=== PATIENT | female | born 1970 | race Caucasian/White ===

== ENCOUNTER 2020-04-05 13:08 | Outpatient (CLI) | payer BC, SELFPAY ==
--- NOTE | 2020-04-05 13:24 | XR_ITS ---
WS: [id number] Right foot, 3 views, 04/05/2020 Clinical Data: pain Comparison: None. Findings: No fractures or dislocations are seen. No bone destruction or erosion is noted. The joint spaces and soft tissues are normal. There is bony irregularity of the lateral aspect of the distal portion of the calcaneus. This may be secondary to an old injury or chronic injury. There are orthopedic screws in the medial malleolus rep airing an old medial malleolar fracture. There is a plantar spur. XR/XR foot RT min 3V* [id number] Impression: Bony irregularity of the lateral aspect of the distal portion of the right calc aneus.
== END 2020-04-05 13:09 | disposition home or self-care (01) ==
LOC: RADWPI 13:16
PROVIDERS: Visit Provider Podiatrist Foot & Ankle Surgery
DX: M79.671 Pain in right foot (principal)
CPT/HCPCS: 73630

== ENCOUNTER → 2020-08-13 09:20 | Outpatient (BNVA) | payer BC, SELFPAY | PROVIDERS: PCP Nurse Practitioner Family; Visit Provider Nurse Practitioner Women's Health | DX: N93.9 Abnormal uterine and vaginal bleeding, unspecified (principal); Z12.4 Encounter for screening for malignant neoplasm of cervix | CPT/HCPCS: 84443; 84702; 88175 ==

== ENCOUNTER → 2020-08-16 13:40 | Outpatient (BNVA) | payer BC, SELFPAY | PROVIDERS: PCP Nurse Practitioner Family; Visit Provider Nurse Practitioner Women's Health | DX: N93.9 Abnormal uterine and vaginal bleeding, unspecified (principal) | CPT/HCPCS: 76830 ==

== ENCOUNTER → 2020-08-27 11:49 | Outpatient (BNVA) | payer BC, SELFPAY | PROVIDERS: PCP Nurse Practitioner Family; Visit Provider Nurse Practitioner Women's Health | DX: N93.9 Abnormal uterine and vaginal bleeding, unspecified (principal) | CPT/HCPCS: 81025; 88305 ==

== ENCOUNTER → 2020-10-03 10:51 | Outpatient (BNVA) | payer BC, SELFPAY | PROVIDERS: PCP Nurse Practitioner Family; Visit Provider Obstetrics & Gynecology | DX: Z20.822 Contact with and (suspected) exposure to COVID-19 (principal); N93.9 Abnormal uterine and vaginal bleeding, unspecified | CPT/HCPCS: 87635 ==

== ENCOUNTER 2020-10-09 07:13 | Day surgery (SDC) | payer BC, SELFPAY ==
[2020-10-07 12:54] VITALS: BMI 38.0
--- NOTE | 2020-10-07 13:20 | P.ANESASSM_ITS ---
Pre-Anesthetic Assessment Pre-Anesthetic Assessment: Height/Weight: Height 1.7 m Weight 110.223 kg Preop Diagnosis: Abnormal uterine bleeding: menorrhagia Proposed Procedure: Operation Date: 10/09/20 13:20 Proposed Procedures p Hysteroscopy w/ Myosure/Endometrial ablation with novasure 11283 N93.9(Not Applicable) - Luis Maxwell MD Familial anesthetic complications: None Social: Social History: No alcohol and No tobacco Exam: Pre-Anes Outpt Exam: alert, oriented x 3, clear to auscultation bilaterally and regular rate & rhythm Airway: Cervical ROM: WNL MP: 3 Dentition: Full Pulmonary: Pulmonary: Asthma CV/HEM: CV/HEM: HTN Metabolic: Metabolic: DM, Hyperlipidemia and Morbid obesity Neuropsych: Comments: hx skull fracture w/ associated stroke - 1987, no residual deficits Splenectomy d/t fall Anesthetic Plan: ASA status: 2 Anesthesia: General and MAC Risk of > 500 ml blood loss (7ml/kg in children): No PFSH Anesthesia PFSH: Medical History Asthma History of [place] spotted fever Hypertension No pertinent past medical history neghx: thyroid,dvt/pe PCP: Fritz Boland Type 2 diabetes mellitus Surgical History History of ankle surgery 1987- R ankle, surgery to repair 2002- L ankle, surgery to repair, redone in 2014 History of conization of cervix (~2009) History of splenectomy (~1996) Hx of breast biopsy (~2009) Hx of fracture of skull (~1987) surgery Family History Father Diabetes Hypercholesteremia Hypertension Thyroid disease Mother Hypercholesteremia Denies family history of Colon cancer Ovarian cancer Heart disease Breast cancer Uterine cancer Stroke Social History (Updated 10/07/20 @ 10:04 by Honey Odell RN) Smoking and tobacco status: never smoked Alcohol intake: never Substance/Drug Use: never Female Reproductive History: Date of last menstrual period: 09/21/20 Data Anesthesia Cardiac Studies: No Data to Display
[2020-10-07 13:25] LABS: Basophils # 0.2 10^3/uL (0.0-0.1); Basophils % 1.6 %; Eosinophils # 0.4 10^3/uL (0.0-0.8); Eosinophils % 4.4 %; Hematocrit 41.5 % (37.0-47.0); Hemoglobin 13.4 g/dL (11.5-15.3); Lymphocytes # 1.5 10^3/uL (0.8-4.8); Lymphocytes % 15.6 %; Mean Corpuscular HGB Conc 32.3 g/dL (30.0-36.0); Mean Corpuscular Hemoglobin 31.8 pg (28.0-34.0); Mean Corpuscular Volume 98.3 fL (81-99); Mean Platelet Volume 10.8 fL (7.4-10.4); Monocytes # 1.1 10^3/uL (0.2-0.9); Monocytes % 11.2 %; Neutrophils # 6.29 10^3/uL (1.8-7.7); Neutrophils % 66.8 %; Nucleated Red Blood Cells % 0 %; Platelet Count 434 10^3/cmm (130-400); Red Blood Count 4.22 10^6/uL (4.1-5.3); Red Cell Distribution Width 14.6 % (12.1-15.1); White Blood Count 9.4 10^3/uL (4.0-10.0)
[2020-10-07 13:31] LABS: Add Urine Microscopic? NO; Charge for UA Resulting for Rev
[2020-10-07 13:34] LABS: Bilirubin Urine Neg (Negative); Blood Urine Neg (Negative); Glucose Urine UA Norm (Normal); Ketones Urine Negative (Negative); Leukocyte Esterase Urine Negative (Negative); Nitrate Urine Negative (Negative); OR HCG Qualitative Urine Negative (Negative); Protein Urine Neg (Negative); Urine Appearance Clear (CLEAR); Urine Color Yellow (Yellow); Urobilinogen Urine Norm (Negative); pH Urine 5 (5-7)
[2020-10-07 13:43] LABS: Alanine Aminotransferase 17 U/L (0-33); Albumin Level 4.2 g/dL (3.5-5.2); Alkaline Phosphatase 83 IU/L (35-105); Aspartate Amino Transferase 15 U/L (0-32); Blood Urea Nitrogen 13 mg/dL (6-20); Calcium 8.9 mg/dL (8.5-10.5); Carbon Dioxide 25 mmol/L (22-29); Chloride 103 mmol/L (98-107); Globulin 3.2 g/dL (1.3-4.6); Glomerular Filtration Rate 88.2 mL/min (90-130); Glucose 173 mg/dL (65-115); Osmolality Calculated 294 mOsm/kg (285-295); Sodium 140 mmol/L (136-145); Total Bilirubin 0.3 mg/dL (0.15-1.2); Total Protein 7.4 g/dL (6.6-8.7)
[2020-10-09] VITALS (7 sets, daily range): BP systolic 120–135; BP diastolic 81–99; PULSE 66–90; RESP 12–18; TEMP 36.3–37.1; O2SAT 96–100
[2020-10-09 07:38] LABS: OR HCG Qualitative Urine Negative (Negative)
[2020-10-09] MEDS: sodium chloride 0.9% 500 ML IV (07:40)
[2020-10-09] MEDS: scopolamine 1.5 Patch 1 PATCH TRANSDERMA (07:48)
--- NOTE | 2020-10-09 08:04 | P.ANESUD_ITS ---
Pre-Anesthetic Update Pre-Anesthetic Assessment: Date of Surgery/Procedure: 10/09/20 Preop Jennifer gnosis: Abnormal uterine bleeding: menorrhagia Proposed Procedure: Operation Date: 10/09/20 08:50 Proposed Procedures p Hysteroscopy w/ Myosure/Endometrial ablation with novasure 55735 N93.9(Not Applicable) - Luis Maxwell MD Any changes to Pre-Anesthetic Assessment?: No Last Intake: Intake Last Liquid Date 10/08/20 Last Liquid Time 19:30 Last Solid Date 10/08/20 Last Solid Time 19:30 Labs Last 48hrs: Laboratory Results - last 48 hr 10/07/20 10/07/20 10/07/20 13:15 13:15 13:15 WBC 9.4 RBC 4.22 Hgb 13.4 Hct 41.5 MCV 98.3 MCH 31.8 MCHC 32.3 RDW 14.6 Plt Count 434 H MPV 10.8 H Neut % (Auto) 66.8 Lymph % (Auto) 15.6 [place] % (Auto) 11.2 Eos % (Auto) 4.4 Baso % (Auto) 1.6 Neut # (Auto) 6.29 Lymph # (Auto) 1.5 [place] # (Auto) 1.1 H Eos # (Auto) 0.4 Baso # (Auto) 0.2 H Nucleated RBC % (a uto) 0 Nucleated RBCs # 0.0 Sodium Potassium Chloride Carbon Dioxide Anion Gap BUN Creatinine GFR Calculation Glucose Calculated Osmolal ity Calcium Total Bilirubin AST ALT Alkaline Phosphata se Total Protein Albumin Globulin Urine Color Yellow Urine Appearance Clear Urine pH 5 Ur Specific Gravit y 1.020 Urine Protein Neg Urine Glucose (UA) Norm Urine Ketones Negative Urine Blood Neg Urine Nitrate Negative Urine Bilirubin Neg Urine Urobilinogen Norm Ur Leukocyte Valerie ase Negative Urine HCG, Qual Negative Blood Type Rho(D) Type Antibody Screen 10/07/20 10/07/20 10/09/20 13:15 13:15 07:35 WBC RBC Hgb Hct MCV MCH MCHC RDW Plt Count MPV Neut % (Auto) Lymph % (Auto) [place] % (Auto) Eos % (Auto) Baso % (Auto) Neut # (Auto) Lymph # (Auto) [place] # (Auto) Eos # (Auto) Baso # (Auto) Nucleated RBC % (a uto) Nucleated RBCs # Sodium 140 Potassium 4.0 Chloride 103 Carbon Dioxide 25 Anion Gap 16.0 BUN 13 Creatinine 0.7 GFR Calculation 88.2 L Glucose 173 H Calculated Osmolal ity 294 Calcium 8.9 Total Bilirubin 0.3 AST 15 ALT 17 Alkaline Phosphata se 83 Total Protein 7.4 Albumin 4.2 Globulin 3.2 Urine Color Urine Appearance Urine pH Ur Specific Gravit y Urine Protein Urine Glucose (UA) Urine Ketones Urine Blood Urine Nitrate Urine Bilirubin Urine Urobilinogen Ur Leukocyte Valerie ase Urine HCG, Qual Negative Blood Type O Positive Rho(D) Type Positive / 4+ Antibody Screen Negative Vitals: Temperature 97.3 F L 10/09/20 07:28 Temperature Source Temporal Artery S can 10/09/20 07:28 Pulse Rate 89 10/09/20 07:28 Respiratory Rate 18 10/09/20 07:28 Blood Pressure 127/91 10/09/20 07:28 Blood Pressure Claritza n 103 10/09/20 07:28 Pulse Oximetry 97 10/09/20 07:28 Oxygen Delivery Me thod 10/09/20 07:34 Exam: Pre-Anes Outpt Exam: alert, oriented x 3, clear to auscultation bilaterally and regular rate & rhythm Cardiac Studies: No Data to Display
--- NOTE | 2020-10-09 08:17 | W.PM.OPSUD ---
Surgery/Procedure H&P Update DATE OF PROCEDURE: October 09, 2020 DATE H&P PERFORMED: 10/07/20 H&P UPDATE INFORMATION: I have reviewed H&P completed within last 30 days, I have examined patient prior to procedure and No changes to prior documentation PREOP DIAGNOSIS: Abnormal uterine bleeding: menorrhagia PLANNED PROCEDURE: Operation Date: 10/09/20 08:50 Proposed Procedures p Hysteroscopy w/ Myosure/Endometrial ablation with novasure 70118 N93.9(Not Applicable) - Luis Maxwell MD
[2020-10-09] MEDS: sodium chloride 0.9% 1,000 ML 30 ML IV (08:30)
--- NOTE | 2020-10-09 09:04 | PM.OP ---
Operative Report Date of procedure: October 09, 2020 Pre-op Diagnosis: Abnormal uterine bleeding: menorrhagia Post-op diagnosis: same Procedure Done: Hysteroscopy with D&C via MyoSure. Endometrial ablation via NovaSure Specimens removed/disposition: Endometrial curettings Pathology: Endometrial curettings Surgeon: Luis Maxwell MD Anesthesia: General Estimated blood loss (mL): 25 IV fluids (mL): 300 Urine output (mL): 50 Complications: None Condition: stable Disposition: PACU Brief History: Mrs. Blackman 50-year-old female with abnormal uterine bleeding previously treated with hysteroscopic polypectomy. Started again with abnormal bleeding. Procedure: After informed consent, the risks included but were not limited to bleeding, infection, injury to internal organs. The patient was counseled on a possible laparotomy and on the potential need for hysterectomy. The patient expressed understanding of the risks involved, all questions were answered, and the patient consented to the procedure. The patient was taken to the operating room where general anesthesia was administered. She was placed in the dorsal lithotomy position and prepped and draped in sterile fashion. A time out procedure was performed. The patient was examined under anesthesia and found to have a normal uterus with normal adnexa. A sterile weight speculum was placed in the vagina. The uterus was then gently sounded to 6.5 cm, and the cervix was dilated. The uterus was previously sounded to 6.5 cm. The length of the cervical canal was normal The 0 degrees MyoSure hysteroscope was advanced gently to the uterine fundus while visualizing the monitor. Survey of the uterine cavity showed: Irregular endometrium on anterior wall, the fundus shows atrophic endometrium; left ostium was visualized, and lateral wall with atrophic in the middle; right ostium visualized, and lateral wall with atrophic endometrium; anterior and posterior slaughter are with atrophic endometrium; endocervical canal is normal. The MyoSure device was advanced and the direct visualization the endometrium was morcellated without complication. At the end of morcellation the fluid deficit was 700 mL and was estimated at approximately 500 mL were on the floor. There was minimal bleeding noted and the tenaculum removed with goad hemostasis noted. Then proceeded with the endometrial ablation via NovaSure. The sterile NovaSure? Disposable Device package was opened, connected and tested per instructions. It was found to be working properly. The device?s array is completely enclosed by the external sheath and the WIDTH dial reads approximately 3.5 cm. The appropriate cavity length settings was set 4.5 cm. Adjust and lock the cavity length setting feature on the Disposable Device to the value obtained. The Cervical Collar was fully retracted to its proximal position. Confirmed that the cervix was dilated to 8 mm. While maintaining a slight traction on the tenaculum to minimize the angle of the uterus. In-line with the axis of the uterus the Disposable Device was inserted transcervically into the uterine cavity and advance the device until the distal end of the sheath touched the fundus. The handles were slowly squeezed up to the point of increased resistance without locking it. The WIDTH dial read 3.5 cm. The Disposable Device handles were slowly squeezed together while gently moving the Disposable Device -0.5 cm to and from the fundus and rotating the handle of the Disposable Device 45? counterclockwise from the vertical plane and 45? clockwise from the vertical plane until the handles locked and confirmed the with dial read greater than 2.5 cm. The Disposable Device was gently moved using anterior, posterior and lateral movements. The Disposable Device was slightly pulled back until the WIDTH dial reading reduced by approximately 0.2-0.5 cm. While holding the tenaculum, the Disposable Device was advance to the fundus, maintaining slight forward pressure. The WIDTH dial read to the previous measurement. The Cervical Collar was slide forward until it forms a seal against the external cervical os. The value indicated on the width dial into the NovaSure? RF Controller. In Automatic Mode the Cavity Integrity Assessment (SAMEER) procedure by stepping on the foot switch once was began. The cavity integrity assessment LED signaled the test has passed. The ablation cycle started was after the successful completion of the Cavity Integrity Assessment test. Termination of the ablation was automatic at 1 min and 37 seconds. The Cervical Collar was slide it to its proximal position. The Disposable Device was unlock, holding the front historic clothing and costume maker stationary and pulling the rear handles backwards until the Closed Array indicator reads closed the Disposable Device was withdrawn from the uterine cavity. A hysteroscopy was performed post ablation to confirm therapy it was noted that endometrial cavity had been thoroughly ablated. Prior to this, a Myosure curreting was performed, and endometrial curettings send to pathology. The patient tolerated the procedure well. The patient was taken to the recovery area in stable condition.
--- NOTE | 2020-10-09 09:17 | P.PCN_ITS ---
PACU note PACU note: VSS, Good respiratory effort, report to COMMERCIAL ACCOUNT EXECUTIVE Post-Anesthesia Exam: awake
--- NOTE | 2020-10-09 09:17 | PM.PACU ---
PACU note PACU note: VSS, Good respiratory effort, report to TAKE OFF MAN Post-Anesthesia Exam: awake
--- NOTE | 2020-10-09 15:35 | ANE.PACU2 ---
Inpatient post-anesthesia follow up: Airway intact: Yes Vital signs: Temperature 98.4 F Pulse Rate 75 Respiratory Rate 18 Blood Pressure 127/81 Pulse Oximetry 96 Oxygen Delivery Me thod Room Air Oxygen Flow Rate 8 Fraction of Inspir ed Oxygen Hydration adequate: Yes Nausea and vomiting: No Pain level: 2 Mental status: Baseline
[2020-10-09 23:11] LABS: Glucose Point of Care 141 mg/dL (70-110)
== END 2020-10-09 09:58 | disposition home or self-care (01) ==
PROVIDERS: PCP Nurse Practitioner Family; Visit Provider Obstetrics & Gynecology
PROC: 0UDB8ZZ Extraction of Endometrium, Via Natural or Artificial Opening Endoscopic (ICD-10-PCS; CPT 58558; principal; 2020-10-09 08:40)
PROC: 0U598ZZ Destruction of Uterus, Via Natural or Artificial Opening Endoscopic (ICD-10-PCS; CPT 58563; 2020-10-09 08:40)
DX: N39.3 Stress incontinence (female) (male) (principal); N92.0 Excessive and frequent menstruation with regular cycle; J45.909 Unspecified asthma, uncomplicated; I10 Essential (primary) hypertension; E11.9 Type 2 diabetes mellitus without complications; E78.5 Hyperlipidemia, unspecified; E66.01 Morbid (severe) obesity due to excess calories; Z68.38 Body mass index [BMI] 38.0-38.9, adult
CPT/HCPCS: 58558; 36415; 36416; 80053; 81003; 81025; 82962; 84703; 85025; 86850; 86900; 88305; J0690; J2405; J2704; J3010; J7030; J7040

== ENCOUNTER 2021-01-28 17:35 | Emergency (ER) | payer BC, SELFPAY ==
[2021-01-28 17:53] VITALS: BP 138/85; PULSE 75; RESP 20; TEMP 36.7; O2SAT 98
--- NOTE | 2021-01-28 21:18 | W.ED.ANIMALB ---
HPI - Animal Bite General: Chief Complaint: Animal Bite Stated Complaint: Dog Bite Spurting Blood Time Seen by Provider: 01/28/21 21:14 History of Present Illness: HPI narrative: 50-year-old female comes in today with injury to the left lower leg. Patient was trying to break up 2 dogs fighting and was accidentally bit on the calf of the left lower leg. Patient reports that her tetanus is up-to-date. Patient does have a history of diabetes. Patient appears well. Patient appears no acute distress. Review of Systems General: Reports: 10 or more systems reviewed and unremarkable except in HPI and below Skin/Breast: Reports: other (Injury left lower leg.) [facility] ED PFSH: Medical History Abnormal uterine bleeding due to endometrial polyp Aftercare following surgery of the genitourinary system Asthma History of hysteroscopy 10/09/2020- hysteroscopy with D&C via myosure, endometrial ablation via Novasure, performed by Dr. Maxwell at [facility] History of [place] spotted fever Hypertension No pertinent past medical history neghx: thyroid,dvt/pe PCP: Fritz Boland Type 2 diabetes mellitus Surgical History History of ankle surgery 1987- R ankle, surgery to repair 2002- L ankle, surgery to repair, redone in 2014 History of conization of cervix (~2009) History of splenectomy (~1996) Hx of breast biopsy (~2009) Hx of fracture of skull (~1987) surgery Family History Father Diabetes Hypercholesteremia Hypertension Thyroid disease Mother Hypercholesteremia Denies family history of Colon cancer Ovarian cancer Heart disease Breast cancer Uterine cancer Stroke Female Reproductive History: Date of last menstrual period: 09/21/20 Physical Exam Const: COMMON NORMALS: no acute distress and patient oriented x3 GENERAL APPEARANCE: cooperative HENMT: COMMON NORMALS: normocephalic and Normal external nose present HEAD & SCALP: normal to inspection and normocephalic NOSE: Normal external nose present Eye: GENERAL EYE: appearance normal, both eyes and all related structures Neck/C-Spine: COMMON NORMALS: full ROM Lymph: LYMPHATIC: no lymphadenopathy noted Chest: COMMONS NORMALS: normal inspection of the chest Resp: COMMON NORMALS: normal respiratory effort EFFORT & INSPECTION: Yes able to speak in complete sentences Cardio: COMMON NORMALS: regular rate and regular rhythm RATE: regular rate RHYTHM: regular rhythm GI: COMMON NORMALS: non-tender Extremity: COMMON NORMALS: normal to inspection Neuro: COMMON NORMALS: patient oriented x3 and moves all extremities Psych: COMMON NORMALS: mental status grossly normal and cooperative Skin: NARRATIVE SKIN EXAM: Two 1 cm lacerations to the left lower leg at the calf. Course Vital Signs: Vital signs: Vital Signs Temperature 98.1 F 01/28/21 17:53 Pulse Rate 75 01/28/21 17:53 Respiratory Rate 20 H 01/28/21 17:53 Blood Pressure 138/85 01/28/21 17:53 Pulse Oximetry 98 01/28/21 17:53 MDM - Animal Bite MDM Narrative: Medical decision making narrative: 50-year-old female comes in for injury to the left lower leg. On exam we note two 1 cm lacerations to the calf of the left lower leg. No foreign body is noted in wound. Patient moves extremities well. Differential diagnosis includes but not limited to laceration, need for prophylaxis tetanus, need for prophylaxis antibiotic. Due to the superficial nature of both wounds they were allowed to be left open. Patient was started on Augmentin for prophylaxis antibiotic. Animal's immunizations were up-to-date. Patient's tetanus shot was up-to-date. Encourage plenty of fluids and follow-up with primary care for further instruction. Return to the ER for worsening symptoms or new concerns. Differential Diagnosis: Differential diagnosis animal bite: Likely dog bite and rabies contact Discharge Plan Discharge Patient Disposition: Home Clinical Impression: Bite by animal Condition: Stable Prescriptions: New Augmentin 875-125 mg tablet 1 tab PO BID Qty: 14 RF: 0 No Action glipizide 5 mg tablet 5 mg PO BID RF: 0 lisinopril 5 mg tablet 5 mg PO DAILY RF: 0 metformin 500 mg tablet 500 mg PO BID RF: 0 amlodipine 10 mg tablet 10 mg PO DAILY RF: 0 atorvastatin 20 mg tablet 20 mg PO DAILY RF: 0 Zyrtec 10 mg capsule 10 mg PO DAILY RF: 0 ibuprofen 800 mg tablet 800 mg PO TID PRN (Reason: pain) Qty: 60 RF: 0 acetaminophen 325 mg capsule 325 mg PO Q4H PRN (Reason: fever or pain) Qty: 60 RF: 0 Discharge Orders: Discharge ED (Routine); Ordered 01/28/21 Ordered By: Buck Brannon Discharge Diet: Usual diet Discharge Activity: Increase activity as tolerated Patient Instructions: Opioid Safety, Wound Care (General) Activity Restrictions/Additional Instructions: Keep wound clean and dry. Activity as tolerated. Try to elevate leg is much as possible for the next 3 to 4 days. Monitor for increased redness and swelling. Take antibiotic as directed for the next 7 days. Follow-up with primary care 1 week. Return to the ER for worsening symptoms or new concerns. Coding Level of Care Code ED Apartment Rental Clerk for Ryan Disla
[2021-01-28] MEDS: amoxicillin-clav 875-125 mg Tablet 1 TAB PO (21:27)
== END 2021-01-28 21:40 | disposition home or self-care (01) ==
PROVIDERS: Emergency Provider Nurse Practitioner Family
DX: S81.852A Open bite, left lower leg, initial encounter (principal); W54.0XXA Bitten by dog, initial encounter; Z79.84 Long term (current) use of oral hypoglycemic drugs; I10 Essential (primary) hypertension; E11.9 Type 2 diabetes mellitus without complications
CPT/HCPCS: 99283

== ENCOUNTER 2021-06-03 09:46 | Outpatient (CLI) | payer BC, SELFPAY | END 2021-06-03 09:47 | disposition home or self-care (01) | LOC: WOUND 09:47 | PROVIDERS: Visit Provider Emergency Medicine | DX: E11.622 Type 2 diabetes mellitus with other skin ulcer (principal); L97.812 Non-pressure chronic ulcer of other part of right lower leg with fat layer exposed | CPT/HCPCS: 11043; 87070; 87077; 87176; 87186; 87205; 99213 ==

== ENCOUNTER 2021-06-06 16:31 | Emergency (ER) | payer BC, SELFPAY ==
[2021-06-06 17:45] VITALS: BP 151/79; PULSE 97; RESP 16; TEMP 36.6; O2SAT 97; BMI 39.4
--- NOTE | 2021-06-06 21:18 | ED_ITS ---
Documented by User: Rai Vasques MD 06/11/21 00:28 HPI - Wound/Laceration General: Chief Complaint: Wound/Laceration Stated Complaint: Wound on R leg, Deteriating Has fevor now Time Seen by Provider: 06/06/21 21:18 History of Present Illness: Ms. Blackman is a 50-year-old lady with significant past medical history of diabetes who presents emergency department due to wound and fever. She reports being kicked by a cow approximately 2 months ago and had a contusion for which she was evaluated at that time. She was diagnosed with hematoma and discharged. She subsequently developed necrosis of the region which is turned to a chronic wound. She was previously treated with a 3-week course of doxycycline then a 10-day course of cephalexin and is currently on clindamycin. She was referred to wound care. She was to have a surgery appointment today due for consideration of surgical debridement however this was canceled due to weather. Over the past few days she has had increased pain at the site and noticed increased tunneling as well as foul-smelling drainage. She has had subjective fevers and chills. She otherwise denies focal source of i nfection, no nausea or vomiting. Overall the course of symptoms has been worsening. Intensity is moderate. No other specific changes to health, exacerbating, relieving factors identified. Onset (ago): month(s) Location: other Extremity Location: Right: lower leg Patient tetanus UTD: Yes Context: accidental Associated symptoms: Reports fever(s) and pain Treatments prior to arrival: other Review of Systems General: Reports: 10 or more systems reviewed and unremarkable except in HPI and below Const: Reports: fever(s) [facility] PFSH: Medical History Abnormal uterine bleeding due to endometrial polyp Aftercare following surgery of the genitourinary system Asthma History of [place] spotted fever Hypertension No pertinent past medical history neghx: thyroid,dvt/pe PCP: Fritz Boland Type 2 diabetes mellitus Surgical History History of ankle surgery 1987- R ankle, surgery to repair 2002- L ankle, surgery to repair, redone in 2014 History of conization of cervix (~2009) History of hysteroscopy 10/09/2020- hysteroscopy with D&C via myosure, endometrial ablation via Novasure, performed by Dr. Maxwell at [facility] History of splenectomy (~1996) Hx of breast biopsy (~2009) Hx of fracture of skull (~1987) surgery Family History Father Diabetes Hypercholesteremia Hypertension Thyroid disease Mother Hypercholesteremia Denies family history of Colon cancer Ovarian cancer Heart disease Breast cancer Uterine cancer Stroke Female Reproductive History: Date of last menstrual period: 09/21/20 Physical Exam Const: COMMON NORMALS: alert GENERAL APPEARANCE: cooperative and well developed HENMT: COMMON NORMALS: normocephalic and atraumatic HEAD & SCALP: normocephalic and atraumatic THROAT: posterior oropharynx normal Eye: COMMON NORMALS: conjunctivae normal CONJUNCTIVA: Yes conjunctivae normal SCLERA: sclerae normal Neck/C-Spine: COMMON NORMALS: supple GENERAL: Yes trachea midline Resp: COMMON NORMALS: normal respiratory effort EFFORT & INSPECTION: Yes able to speak in complete sentences Cardio: COMMON NORMALS: regular rate and regular rhythm RATE: regular rate RHYTHM: regular rhythm GI: COMMON NORMALS: Soft to palpation PALPATION: Yes Soft to palpation and No Tenderness to palpation present (GI) PERCUSSION: normal to percussion Extremity: NARRATIVE EXTREMITY EXAM: Right lower extremity. Lateral anterior wound with subcutaneous tissue and granulation tissue in the wound bed. There is mild tracking in the inferior medial direction, mild surrounding induration, no necrotic tissue appreciated. Some tenderness to palpation. Distal pulses intact. GENERAL: Yes edema Neuro: COMMON NORMALS: moves all extremities SENSORIUM/ORIENTATION: Yes alert and No Orientation impaired Psych: COMMON NORMALS: mental status grossly normal and Normal thought process present THOUGHT PROCESS: Normal thought process present Course ED course: - Patient was seen and evaluated by me at bedside - Patient placed on cardiac monitors, IV access obtained - Initial evaluation notable for exam as above - Analgesia given - Patient care handed off to overnight ED physician Dr. Dalton pending completion of laboratory studies. If inflammatory markers are significantly elevated the patient would require further inpatient management treatment given use of outpatient antibiotics. - I reviewed previous cultures, additional antibiotics will be added if patient discharged. Note: Click bubbles or prepopulated correa in note writing are used for assistance with data collection and billing and are inherently more limited than narrative and other text portions of this note. Please use narrative for additional clinical history and defer to narrative/free test for any case of contradictory information. If information appears in only free text or click bubble it should be considered present or absent as reported. Please contact note freelance copywriter for clarifications of clinical information or contradictory information. MDM is a brief summary, contradictory or erroneous seeming information should be clarified and full note should be reviewed. Vital Signs: Vital signs: Vital Signs Temperature 97.9 F 06/06/21 17:45 Pulse Rate 70 06/07/21 02:36 Respiratory Rate 16 06/07/21 02:36 Blood Pressure 123/95 06/07/21 02:36 Pulse Oximetry 95 06/07/21 02:36 MDM - Wound/Laceration Medical Records I reviewed the patient's medical records. Lab Data I reviewed the patient's lab results. : 06/06/21 23:42 06/06/21 23:42 Radiology Impressions Tibia/Fibula X-Ray 06/06/21 22:11 IMPRESSION: 1. Laceration over the mid lateral aspect of the fibula without radiodense foreign body, fracture or dislocation. 2. Medial malleolus demonstrates [address] Laboratory Results WBC 10.5 10^3/uL (4.0-10.0) H 06/06/21 23:42 RBC 4.16 10^6/uL (4.1-5.3) 06/06/21 23:42 Hgb 13.3 g/dL (11.5-15.3) 06/06/21 23:42 Hct 40.9 % (37.0-47.0) 06/06/21 23:42 MCV 98.3 fl (81-99) 06/06/21 23:42 MCH 32.0 pg (28.0-34.0) 06/06/21 23:42 MCHC 32.5 g/dL (30.0-36.0) 06/06/21 23:42 RDW 13.4 % (12.1-15.1) 06/06/21 23:42 Plt Count 470 10^3/cmm (130-400) H 06/06/21 23:42 MPV 10.9 fL (7.4-10.4) H 06/06/21 23:42 Neut % (Auto) 64.2 % 06/06/21 23:42 Lymph % (Auto) 19.5 % 06/06/21 23:42 [place] % (Auto) 11.7 % 06/06/21 23:42 Eos % (Auto) 2.9 % 06/06/21 23:42 Baso % (Auto) 1.1 % 06/06/21 23:42 Neut # (Auto) 6.74 10^3/uL (1.8-7.7) 06/06/21 23:42 Lymph # (Auto) 2.0 10^3/uL (0.8-4.8) 06/06/21 23:42 [place] # (Auto) 1.2 10^3/uL (0.2-0.9) H 06/06/21 23:42 Eos # (Auto) 0.3 10^3/uL (0.0-0.8) 06/06/21 23:42 Baso # (Auto) 0.1 10^3/uL (0.0-0.1) 06/06/21 23:42 Nucleated RBC % (auto) 0 % 06/06/21 23:42 Nucleated RBCs # 0.0 /100WBC 06/06/21 23:42 ESR 3 mm/hr (0-15) 06/06/21 23:42 Sodium 136 mmol/L (136-145) 06/06/21 23:42 Potassium 4.8 mmol/L (3.5-5.1) 06/06/21 23:42 Chloride 102 mmol/L (98-107) 06/06/21 23:42 Carbon Dioxide 24 mmol/L (22-29) 06/06/21 23:42 Anion Gap 14.8 (5-19) 06/06/21 23:42 BUN 8 mg/dL (6-20) 06/06/21 23:42 Creatinine 0.5 mg/dL (0.5-0.9) 06/06/21 23:42 GFR Calculation 130.1 mL/min (90-130) H 06/06/21 23:42 Glucose 196 mg/dL (65-115) H 06/06/21 23:42 Calculated Osmolality 286 mOsm/kg (285-295) 06/06/21 23:42 Lactic Acid 0.9 mmol/L (0.5-2.2) 06/06/21 00:36 Calcium 9.6 mg/dL (8.5-10.5) 06/06/21 23:42 Total Bilirubin 0.2 mg/dL (0.15-1.2) 06/06/21 23:42 AST 12 U/L (0-32) 06/06/21 23:42 ALT 16 U/L (0-33) 06/06/21 23:42 Alkaline Phosphatase 104 IU/L (35-105) 06/06/21 23:42 C-Reactive Protein 4.3 mg/L (0.0-4.9) 06/06/21 23:42 Total Protein 6.9 g/dL (6.6-8.7) 06/06/21 23:42 Albumin 4.2 g/dL (3.5-5.2) 06/06/21 23:42 Globulin 2.7 g/dL (1.3-4.6) 06/06/21 23:42 Discharge Plan Discharge Patient Disposition: Home Clinical Impression: Leg wound, right, Type 2 diabetes mellitus Condition: Stable Prescriptions: New ciprofloxacin HCl 750 mg tablet 750 mg PO BID 14 Days Qty: 28 0RF No Action glipizide 5 mg tablet 5 mg PO BID 0RF Label Comments: 5mg in am 2.5mg in pm lisinopril 5 mg tablet 5 mg PO DAILY 0RF metformin 500 mg tablet 500 mg PO BID 0RF amlodipine 10 mg tablet 10 mg PO DAILY 0RF atorvastatin 20 mg tablet 20 mg PO DAILY 0RF Zyrtec 10 mg capsule 10 mg PO DAILY 0RF ibuprofen 800 mg tablet 800 mg PO TID PRN (Reason: pain) Qty: 60 0RF acetaminophen 325 mg capsule 325 mg PO Q4H PRN (Reason: fever or pain) Qty: 60 0RF Augmentin 875-125 mg tablet 1 tab PO BID Qty: 14 0RF Discharge Orders: Discharge ED (Routine); Ordered 06/07/21 Ordered By: Canelo Dalton Referrals: Maximino Cardenas MD [Physician] - 1-3 days Discharge Diet: Usual diet Discharge Activity: Resume usual activity Patient Instructions: Chronic Wound Care (ED), Chronic Wounds (ED) Activity Restrictions/Additional Instructions: Thank you for visiting the emergency department. You were seen and evaluated for worsening of your leg wound. Based on laboratory studies and clinical evaluation I believe that it is safe to continue outpatient management. Based on previous cultures we will add an additionalantibiotic which you will be prescribed. Please continue to follow-up with outpatient wound care and your previously scheduled/rescheduled appointments. Return to the emergency department for worsening symptoms or anything else that you are concerned about and feel needs emergency department evaluation. Coding Level of Care Code ED Nuclear Medical Tech for Chg Fwd Exam Comprehensive Documented by User: Canelo Dalton MD 06/07/21 01:22 HPI - Wound/Laceration General: Chief Complaint: Wound/Laceration Stated Complaint: Wound on R leg, Deteriating Has fevor now Time Seen by Provider: 06/06/21 21:18 [facility] PFSH: Medical History Abnormal uterine bleeding due to endometrial polyp Aftercare following surgery of the genitourinary system Asthma History of [place] spotted fever Hypertension No pertinent past medical history neghx: thyroid,dvt/pe PCP: Fritz Boland Type 2 diabetes mellitus Surgical History History of ankle surgery 1987- R ankle, surgery to repair 2002- L ankle, surgery to repair, redone in 2014 History of conization of cervix (~2009) History of hysteroscopy 10/09/2020- hysteroscopy with D&C via myosure, endometrial ablation via Novasure, performed by Dr. Maxwell at [facility] History of splenectomy (~1996) Hx of breast biopsy (~2009) Hx of fracture of skull (~1987) surgery Family History Father Diabetes Hypercholesteremia Hypertension Thyroid disease Mother Hypercholesteremia Denies family history of Colon cancer Ovarian cancer Heart disease Breast cancer Uterine cancer Stroke Course Vital Signs: Vital signs: Vital Signs Temperature 97.9 F 06/06/21 17:45 Pulse Rate 70 06/07/21 02:36 Respiratory Rate 16 06/07/21 02:36 Blood Pressure 123/95 06/07/21 02:36 Pulse Oximetry 95 06/07/21 02:36 MDM - Wound/Laceration Medical Decision Making Patient presents here with wound to her right leg I showed the images to Dr. Cardenas he/she is to follow-up with Dr. Fragoso as outpatient for likely debridement she is to continue antibiotic she is to return if worsening. Lab Data : 06/06/21 23:42 06/06/21 23:42 Radiology Impressions Tibia/Fibula X-Ray 06/06/21 22:11 IMPRESSION: 1. Laceration over the mid lateral aspect of the fibula without radiodense foreign body, fracture or dislocation. 2. Medial malleolus demonstrates [address] Laboratory Results WBC 10.5 10^3/uL (4.0-10.0) H 06/06/21 23:42 RBC 4.16 10^6/uL (4.1-5.3) 06/06/21 23:42 Hgb 13.3 g/dL (11.5-15.3) 06/06/21 23:42 Hct 40.9 % (37.0-47.0) 06/06/21 23:42 MCV 98.3 fl (81-99) 06/06/21 23:42 MCH 32.0 pg (28.0-34.0) 06/06/21 23:42 MCHC 32.5 g/dL (30.0-36.0) 06/06/21 23:42 RDW 13.4 % (12.1-15.1) 06/06/21 23:42 Plt Count 470 10^3/cmm (130-400) H 06/06/21 23:42 MPV 10.9 fL (7.4-10.4) H 06/06/21 23:42 Neut % (Auto) 64.2 % 06/06/21 23:42 Lymph % (Auto) 19.5 % 06/06/21 23:42 [place] % (Auto) 11.7 % 06/06/21 23:42 Eos % (Auto) 2.9 % 06/06/21 23:42 Baso % (Auto) 1.1 % 06/06/21 23:42 Neut # (Auto) 6.74 10^3/uL (1.8-7.7) 06/06/21 23:42 Lymph # (Auto) 2.0 10^3/uL (0.8-4.8) 06/06/21 23:42 [place] # (Auto) 1.2 10^3/uL (0.2-0.9) H 06/06/21 23:42 Eos # (Auto) 0.3 10^3/uL (0.0-0.8) 06/06/21 23:42 Baso # (Auto) 0.1 10^3/uL (0.0-0.1) 06/06/21 23:42 Nucleated RBC % (auto) 0 % 06/06/21 23:42 Nucleated RBCs # 0.0 /100WBC 06/06/21 23:42 ESR 3 mm/hr (0-15) 06/06/21 23:42 Sodium 136 mmol/L (136-145) 06/06/21 23:42 Potassium 4.8 mmol/L (3.5-5.1) 06/06/21 23:42 Chloride 102 mmol/L (98-107) 06/06/21 23:42 Carbon Dioxide 24 mmol/L (22-29) 06/06/21 23:42 Anion Gap 14.8 (5-19) 06/06/21 23:42 BUN 8 mg/dL (6-20) 06/06/21 23:42 Creatinine 0.5 mg/dL (0.5-0.9) 06/06/21 23:42 GFR Calculation 130.1 mL/min (90-130) H 06/06/21 23:42 Glucose 196 mg/dL (65-115) H 06/06/21 23:42 Calculated Osmolality 286 mOsm/kg (285-295) 06/06/21 23:42 Lactic Acid 0.9 mmol/L (0.5-2.2) 06/06/21 00:36 Calcium 9.6 mg/dL (8.5-10.5) 06/06/21 23:42 Total Bilirubin 0.2 mg/dL (0.15-1.2) 06/06/21 23:42 AST 12 U/L (0-32) 06/06/21 23:42 ALT 16 U/L (0-33) 06/06/21 23:42 Alkaline Phosphatase 104 IU/L (35-105) 06/06/21 23:42 C-Reactive Protein 4.3 mg/L (0.0-4.9) 06/06/21 23:42 Total Protein 6.9 g/dL (6.6-8.7) 06/06/21 23:42 Albumin 4.2 g/dL (3.5-5.2) 06/06/21 23:42 Globulin 2.7 g/dL (1.3-4.6) 06/06/21 23:42 Discharge Plan Discharge Patient Disposition: Home Clinical Impression: Leg wound, right, Type 2 diabetes mellitus Condition: Stable Prescriptions: New ciprofloxacin HCl 750 mg tablet 750 mg PO BID 14 Days Qty: 28 0RF No Action glipizide 5 mg tablet 5 mg PO BID 0RF Label Comments: 5mg in am 2.5mg in pm lisinopril 5 mg tablet 5 mg PO DAILY 0RF metformin 500 mg tablet 500 mg PO BID 0RF amlodipine 10 mg tablet 10 mg PO DAILY 0RF atorvastatin 20 mg tablet 20 mg PO DAILY 0RF Zyrtec 10 mg capsule 10 mg PO DAILY 0RF ibuprofen 800 mg tablet 800 mg PO TID PRN (Reason: pain) Qty: 60 0RF acetaminophen 325 mg capsule 325 mg PO Q4H PRN (Reason: fever or pain) Qty: 60 0RF Augmentin 875-125 mg tablet 1 tab PO BID Qty: 14 0RF Discharge Orders: Discharge ED (Routine); Ordered 06/07/21 Ordered By: Canelo Dalton Referrals: Maximino Cardenas MD [Physician] - 1-3 days Discharge Diet: Usual diet Discharge Activity: Resume usual activity Patient Instructions: Chronic Wound Care (ED), Chronic Wounds (ED) Activity Restrictions/Additional Instructions: Thank you for visiting the emergency department. You were seen and evaluated for worsening of your leg wound. Based on laboratory studies and clinical evaluation I believe that it is safe to continue outpatient management. Based on previous cultures we will add an additionalantibiotic which you will be prescribed. Please continue to follow-up with outpatient wound care and your previously scheduled/rescheduled appointments. Return to the emergency department for worsening symptoms or anything else that you are concerned about and feel needs emergency department evaluation. Coding Level of Care Code ED Nuclear Medical Tech for Ryan Fwd Exam Comprehensive
--- NOTE | 2021-06-06 22:11 | XRR_ITS ---
PROCEDURE INFORMATION: Exam: XR Right Tibia and Fibula Exam date and time: 06/06/2021 10:11 PM Age: 50 years old Clinical indication: Swelling, leg or foot; Prior surgery; Surgery date: 6+ months; Surgery type: RT ankle; Additional info: Wound, eval for deep gas TECHNIQUE: Imaging protocol: XR Right tibia and fibula. Views: 2 views. COMPARISON: No relevant prior studies available. FINDINGS: Bones/joints: Medial malleolus demonstrates [address]. Soft tissues: Laceration over the mid lateral aspect of the fibula without radiodense foreign body, fracture or dislocation. XR/XR tibia fibula RT 2V [id number] IMPRESSION: 1. Laceration over the mid lateral aspect of the fibula without radiodense foreign body, fracture or dislocation. 2. Medial malleolus demonstrates [address]
[2021-06-06] MEDS: acetaminophen 500 mg Tablet 1000 MG PO (22:27)
[2021-06-06 23:57] LABS: Basophils # 0.1 10^3/uL (0.0-0.1); Basophils % 1.1 %; Eosinophils # 0.3 10^3/uL (0.0-0.8); Eosinophils % 2.9 %; Hematocrit 40.9 % (37.0-47.0); Hemoglobin 13.3 g/dL (11.5-15.3); Lymphocytes % 19.5 %; Mean Corpuscular HGB Conc 32.5 g/dL (30.0-36.0); Mean Corpuscular Volume 98.3 fl (81-99); Mean Platelet Volume 10.9 fL (7.4-10.4); Monocytes # 1.2 10^3/uL (0.2-0.9); Monocytes % 11.7 %; Neutrophils # 6.74 10^3/uL (1.8-7.7); Neutrophils % 64.2 %; Nucleated Red Blood Cells % 0 %; Platelet Count 470 10^3/cmm (130-400); Red Blood Count 4.16 10^6/uL (4.1-5.3); Red Cell Distribution Width 13.4 % (12.1-15.1); White Blood Count 10.5 10^3/uL (4.0-10.0)
[2021-06-07 00:14] LABS: Alanine Aminotransferase 16 U/L (0-33); Albumin Level 4.2 g/dL (3.5-5.2); Alkaline Phosphatase 104 IU/L (35-105); Aspartate Amino Transferase 12 U/L (0-32); Blood Urea Nitrogen 8 mg/dL (6-20); Calcium 9.6 mg/dL (8.5-10.5); Carbon Dioxide 24 mmol/L (22-29); Chloride 102 mmol/L (98-107); Globulin 2.7 g/dL (1.3-4.6); Glomerular Filtration Rate 130.1 mL/min (90-130); Glucose 196 mg/dL (65-115); Osmolality Calculated 286 mOsm/kg (285-295); Sodium 136 mmol/L (136-145); Total Bilirubin 0.2 mg/dL (0.15-1.2); Total Protein 6.9 g/dL (6.6-8.7)
[2021-06-07 00:16] LABS: Anion Gap 14.8 (5-19); Potassium 4.8 mmol/L (3.5-5.1)
[2021-06-07 01:02] LABS: Erythrocyte Sedimentation Rate 3 mm/hr (0-15)
[2021-06-07 01:09] LABS: Lactic Sepsis W/Reflex 0.9 mmol/L (0.5-2.2)
[2021-06-07 01:10] LABS: C Reactive Protein 4.3 mg/L (0.0-4.9)
[2021-06-07] MEDS: vancomycin 1,000 MG in sodium chloride 0.9% 250 ML 250 MG IV (01:40)
[2021-06-07 02:05] VITALS: BP 124/80; PULSE 78; RESP 16; O2SAT 96
[2021-06-07 02:36] VITALS: BP 123/95; PULSE 70; RESP 16; O2SAT 95
--- NOTE | 2021-06-09 14:19 | DCPLANNER ---
Addendum entered by Darline Mayes 06/13/21 07:30: Patient had a follow up appointment with Wound Care - patient did attend appointment. Original Note: manager maritime had message to schedule a follow up appointment for patient with Wound Care. manager maritime called the Wound Care clinic, spoke with Sade, gave clinic patients information. A follow up appointment is scheduled for Wednesday, June 13, [address] Shafer, patient is aware of appointment.
== END 2021-06-07 02:36 | disposition home or self-care (01) ==
PROVIDERS: Emergency Medicine; Emergency Provider Emergency Medicine
DX: S81.811A Laceration without foreign body, right lower leg, initial encounter (principal); E11.9 Type 2 diabetes mellitus without complications; W55.22XA Struck by cow, initial encounter; Z79.84 Long term (current) use of oral hypoglycemic drugs; I10 Essential (primary) hypertension
CPT/HCPCS: 73590; 80053; 83605; 85025; 85651; 86140; 87040; 96365; 99284; J3370; J7050

== ENCOUNTER → 2021-06-11 14:12 | Outpatient (BNVA) | payer BC, SELFPAY | PROVIDERS: Visit Provider Surgery | DX: S81.801A Unspecified open wound, right lower leg, initial encounter (principal); X58.XXXA Exposure to other specified factors, initial encounter | CPT/HCPCS: 87635 ==

== ENCOUNTER 2021-06-17 10:12 | Day surgery (SDC) | payer BC, SELFPAY ==
[2021-06-16 14:15] VITALS: BMI 39.4
[2021-06-17] VITALS (7 sets, daily range): BP systolic 128–146; BP diastolic 80–98; PULSE 16–93; RESP 16–18; TEMP 36.1–37; O2SAT 96–100
[2021-06-17] MEDS: acetaminophen 1,000 MG/100 ML PIGGYBACK 400 MG IV (10:52)
[2021-06-17] MEDS: sodium chloride 0.9% 1,000 ML 30 ML IV (10:52)
[2021-06-17] MEDS: heparin 5,000 unit/mL INJ 1 mL 2000 UNIT SUBCUT (10:53)
[2021-06-17 11:01] LABS: OR HCG Qualitative Urine Negative (Negative)
[2021-06-17 11:05] LABS: Glucose Point of Care 161 mg/dL (70-110)
--- NOTE | 2021-06-17 11:08 | W.PM.OPSUD ---
Surgery/Procedure H&P Update DATE OF PROCEDURE: June 17, 2021 DATE H&P PERFORMED: 06/11/21 PREOP DIAGNOSIS: Right leg wound PRIMARY INDICATION FOR PROCEDURE: The same PLANNED PROCEDURE: Operation Date: 06/17/21 11:30 Proposed Procedures p Debridement right lower ext wound 02297/s81.801a(Right) - Maximino Cardenas MD
--- NOTE | 2021-06-17 11:26 | P.ANESASSM_ITS ---
Pre-Anesthetic Assessment Height/Weight: Height 1.7 m Weight 114.305 kg Temp Pulse Resp BP Pulse Ox 98.6 F 83 18 134/91 99 06/17/21 10:39 06/17/21 10:39 06/17/21 10:39 06/17/21 10:39 06/17/21 10:39 Preop Diagnosis: Right leg wound Operation Date: 06/17/21 11:30 Proposed Procedures p Debridement right lower ext wound 57421/[id number](Right) - Maximino Cardenas MD Familial anesthetic complications: none Was Beta Mirella taken within 24 hours: N/A Was Clonidine taken within 24 hours: N/A Last intake: Intake Last Liquid Date 06/16/21 Last Liquid Time 23:59 Last Solid Date 06/16/21 Last Solid Time 20:00 Social No alcohol and No tobacco Exam alert, oriented x 3, clear to auscultation bilaterally and regular rate & rhythm Airway Submandibular: within normal limits Cervical ROM: within normal limits Mallampati: Class III Dentition: full Pulmonary Asthma CV/HEM Hypertension METS > 4 AUB Hepatic None reported GI Gastroesophageal Reflux Disease (Well controlled) Metabolic Diabetes Mellitus [facility] [place] None reported Neuropsych Seizure (Remote related to skull fx) Anesthetic Plan ASA status: 2 Anesthesia: Anesthesia Evaluation and General Other: We discussed risk and benefits of general anesthesia including PONV, sore throat (sometimes severe), corneal abrasion, positioning and peripheral nerve injuries, life threatening allergic reaction, post operative ICU admission requiring prolonged intubation, stroke, heart attack, , and rare incidences of recall. Patient consents to proceed with general anesthesia. Risk of > 500 ml blood loss (7ml/kg in children): No Medications/Allergies Home Medications Medication Instructions Recorded Confirmed Last Taken Type amlodipine 10 mg tablet 10 mg PO DAILY 04/05/20 06/17/21 06/16/21 History atorvastatin 20 mg tablet 20 mg PO DAILY 04/05/20 06/17/21 06/16/21 History cetirizine 10 mg capsule (Zyrtec) 10 mg PO DAILY 04/05/20 06/17/21 06/16/21 History glipizide 5 mg tablet 5 mg PO BID tab 08/13/20 06/17/21 06/16/21 History lisinopril 5 mg tablet 5 mg PO DAILY 08/13/20 06/17/2106/16/22 History acetaminophen 325 mg capsule 325 mg PO Q4H PRN #60 cap 10/09/20 06/16/21 Unknown Rx ibuprofen 800 mg tablet 800 mg PO TID PRN #60 tab 10/09/20 06/17/21 06/16/21 Rx ciprofloxacin HCl 750 mg tablet 750 mg PO BID 14 Days #28 tab 06/06/21 06/17/21 06/16/21 Rx metformin 1,000 mg tablet 1,000 mg PO BID 06/16/21 06/17/21 06/16/21 History Allergies Allergy/AdvReac Type Severity Reaction Status Date / Time Sulfa (Sulfonamide Allergy rash Verified 06/13/21 11:47 Antibiotics) Current Medications Generic Name Dose Route Start Last Admin Trade Name Freq PRN Reason Stop Dose Admin Sodium Chloride 1,000 mls @ 30 mls/hr 06/17/21 10:45 06/17/21 10:52 Sodium Chloride 0.9% IV 06/18/21 10:44 30 mls/hr .Q24H BOB Administration PFSH Anesthesia Medical History Abnormal uterine bleeding due to endometrial polyp Aftercare following surgery of the genitourinary system Asthma History of [place] spotted fever Hypertension No pertinent past medical history neghx: thyroid,dvt/pe PCP: Fritz Boland Type 2 diabetes mellitus Surgical History History of ankle surgery 1987- R ankle, surgery to repair 2002- L ankle, surgery to repair, redone in 2014 History of conization of cervix (~2009) History of hysteroscopy 10/09/2020- hysteroscopy with D&C via myosure, endometrial ablation via Novasure, performed by Dr. Maxwell at [facility] History of splenectomy (~1996) Hx of breast biopsy (~2009) Hx of fracture of skull (~1987) surgery Family History Father Diabetes Hypercholesteremia Hypertension Thyroid disease Mother Hypercholesteremia Denies family history of Colon cancer Ovarian cancer Heart disease Breast cancer Uterine cancer Stroke Social History Smoking and tobacco status: never smoked Female Reproductive History Date of last menstrual period: 08/01/20 Data Anesthesia Cardiac Studies: No Data to Display
--- NOTE | 2021-06-17 12:18 | P.OP_ITS ---
Operative Report Date of procedure: June 17, 2021 Pre-op diagnosis: Preop Diagnosis Right leg wound Post-op diagnosis: Right lower extremity traumatic wound Post-op findings: Undermining towards the caudad part of the wound Predebridement measurements 5 x 4.3 x 0.5 cm Postdebridement measurements 5 x 5 x 1 cm Procedure done: 1-Excisional and sharp debridement of right lower extremity wound 2-Application of Restrata skin substitute graft 3.8 x 5.0 cm Implants: Restrata skin substitute graft 3.8 x 5.0 cm Specimens removed/disposition: Wound edge for permanent pathology Surgeon: Maximino Cardenas MD Event Set Up Specialist: Surgical Keerthi Skinner and Liliane Circulating nurses Jailene and Libby Zhao Estimated blood loss: 10 Procedure: After identifying the patient holding area, the right lower extremity was marked before the procedure by myself, patient was then taken to the operative suite, was placed in supine position, IV antibiotics were given per protocol,IV propofol was infused by the anesthesia provider, prep and drape of the wound and periwound regionswas done under the usual sterile technique. Time-out was done verifying the patient's name/date of /planned procedure and destination after the procedure, all were in agreement. Started by excising the unhealthy necrotic indurated tissues of the wound. Incision was created at the skin level and went all the way down to the subcutaneous tissues and muscle layer, wound edge was excised including unhealthy tissues and wound edge biopsy was sent for permanent pathology. Noticed to have an undermining towards the caudad part of the wound about an inch in length.Excisional and sharp debridement was done all the way to the muscle layer. Copious and extensive irrigation was done using Pulsavac 1 L of wash followed by 3 L of warm saline. Wound measurements ; Predebridement measurements 5 x 4.3 x 0.5 cm Postdebridement measurements 5 x 5 x [address] to the muscle layer. There was no evidence of pus. Appropriate hemostasis was achieved That point I decided to apply the Restrata skin substitute 3.8 x 5 that was soaked in saline for couple of minutes prior to application, and was secured to the edges of the wound using #3-0 PDS, followed by Adaptic and Steri-Strips 4 x 4's ABDs, Kerlix and Librado wraps. Patient tolerated the procedure well, count of instruments,needles and sponges were completed at the end of the procedure. Patient was then taken to the recovery area in stable condition. I was present for the whole entire procedure.
[2021-06-17] MEDS: HYDROcodone-acetaminophen 5-325 mg Tablet 1 TAB PO (12:50)
--- NOTE | 2021-06-17 16:53 | ANE.PACU2 ---
Inpatient post-anesthesia follow up: Airway intact: Yes Vital signs: Temperature 97.0 F Pulse Rate 68 Respiratory Rate 18 Blood Pressure 145/90 Pulse Oximetry 96 Oxygen Delivery Me thod Room Air Oxygen Flow Rate 5 Fraction of Inspir ed Oxygen Hydration adequate: Yes Nausea and vomiting: No Pain level: 2 Mental status: Baseline
== END 2021-06-17 13:50 | disposition home or self-care (01) ==
PROVIDERS: Visit Provider Surgery
PROC: (CPT 11043; principal; 2021-06-17 11:20)
DX: S81.801A Unspecified open wound, right lower leg, initial encounter (principal); X58.XXXA Exposure to other specified factors, initial encounter; I10 Essential (primary) hypertension; E11.9 Type 2 diabetes mellitus without complications; K21.9 Gastro-esophageal reflux disease without esophagitis; Z82.49 Family history of ischemic heart disease and other diseases of the circulatory system; Z83.3 Family history of diabetes mellitus
CPT/HCPCS: 11043; 11046; 15271; 36416; 81025; 82962; 84703; 88304; 96365; C1763; J1644; J2405; J2704; J3010; J7030

== ENCOUNTER 2021-06-19 08:17 | Outpatient (CLI) | payer BC, SELFPAY ==
--- NOTE | 2021-06-19 08:27 | USCV_ITS ---
Crystal Blackman Age: 50 Gender: F : 1970 Exam Date: 06/19/2021 08:46 Ordering Phys: Kacie Olivia DO Technologist: BENSON Exam Location: [facility] [place]_ Indication: HISTORY: Ulcers. PROCEDURES: Right duplex Venous Insufficiency study of the Deep and Superficial systems was carried out according to normal protocol with the patient in supine positon for deep system and dependent position for the superficial system. FINDINGS: RLE only per physcians order. Reflux visualized in the RT SFJ and RT GSV BK ?vessel depth if pt is candidate for ablation. All veins imaged appears free of thrombus and compressible at this time. The veins were found to be easily compressible with spontaneous blood flow. Non pulsatile flow pattern. Abnormal reflux time at the saphenofemoral junction and also ID below knee segment of the greater saphenous vein on the right side CONCLUSIONS Abnormal reflux time of greater than 500 ms of the saphenofemoral junction and at the below-knee segments of the greater saphenous vein on the right side. These venous segments were 0.87 and 0.32 cm respectively at these sites and at a depth of 1.43 and 1.18 cm from the surface. The reflux time at the saphenofemoral junction was 1069 ms and at the below-knee level, it was 506 ms. No evidence of DVT in the above-mentioned identifiable veins. Dr Ashley Ruiz MD [facility] (Electronically Signed) Final Date: 23 June 2021 20:00 S
== END 2021-06-19 08:18 | disposition home or self-care (01) ==
PROVIDERS: PCP Nurse Practitioner Family; Visit Provider Emergency Medicine
DX: E11.622 Type 2 diabetes mellitus with other skin ulcer (principal); I87.2 Venous insufficiency (chronic) (peripheral)
CPT/HCPCS: 93971

== ENCOUNTER 2021-06-20 13:21 | Outpatient (CLI) | payer BC, SELFPAY | END 2021-06-20 13:22 | disposition home or self-care (01) | LOC: WOUND 13:22 | PROVIDERS: PCP Nurse Practitioner Family; Visit Provider Surgery | DX: E11.622 Type 2 diabetes mellitus with other skin ulcer (principal); L97.812 Non-pressure chronic ulcer of other part of right lower leg with fat layer exposed | CPT/HCPCS: 11043; A6250 ==

== ENCOUNTER 2021-06-24 15:21 | Outpatient (CLI) | payer BC, SELFPAY | END 2021-06-24 15:22 | disposition home or self-care (01) | LOC: WOUND 15:23 | PROVIDERS: PCP Nurse Practitioner Family; Visit Provider Emergency Medicine | DX: E11.622 Type 2 diabetes mellitus with other skin ulcer (principal); L97.812 Non-pressure chronic ulcer of other part of right lower leg with fat layer exposed | CPT/HCPCS: 97605; A6237; A6250 ==

== ENCOUNTER 2021-06-27 10:14 | Outpatient (CLI) | payer BC, SELFPAY | END 2021-06-27 10:15 | disposition home or self-care (01) | LOC: WOUND 10:15 | PROVIDERS: PCP Nurse Practitioner Family; Visit Provider Surgery | DX: I96 Gangrene, not elsewhere classified (principal); E11.622 Type 2 diabetes mellitus with other skin ulcer; L97.812 Non-pressure chronic ulcer of other part of right lower leg with fat layer exposed | CPT/HCPCS: 11042; 97605; A6237; A6250 ==

== ENCOUNTER 2021-07-01 14:50 | Outpatient (CLI) | payer BC, SELFPAY | END 2021-07-01 14:51 | disposition home or self-care (01) | LOC: WOUND 14:50 | PROVIDERS: PCP Nurse Practitioner Family; Visit Provider Thoracic Surgery (Cardiothoracic Vascular Surgery) | DX: E11.622 Type 2 diabetes mellitus with other skin ulcer (principal); L97.812 Non-pressure chronic ulcer of other part of right lower leg with fat layer exposed | CPT/HCPCS: 97605; A6237 ==

== ENCOUNTER 2021-07-04 14:15 | Outpatient (CLI) | payer BC, SELFPAY | END 2021-07-04 14:16 | disposition home or self-care (01) | LOC: WOUND 14:18 | PROVIDERS: PCP Nurse Practitioner Family; Visit Provider Nurse Practitioner Family | DX: E11.622 Type 2 diabetes mellitus with other skin ulcer (principal); L97.812 Non-pressure chronic ulcer of other part of right lower leg with fat layer exposed | CPT/HCPCS: 15271; 97605; A6237; C1849 ==

== ENCOUNTER 2021-07-08 14:32 | Outpatient (CLI) | payer BC, SELFPAY | END 2021-07-08 14:33 | disposition home or self-care (01) | LOC: WOUND 14:33 | PROVIDERS: PCP Nurse Practitioner Family; Visit Provider Emergency Medicine | DX: E11.622 Type 2 diabetes mellitus with other skin ulcer (principal); L97.812 Non-pressure chronic ulcer of other part of right lower leg with fat layer exposed | CPT/HCPCS: 97605; A6237 ==

== ENCOUNTER 2021-07-11 08:17 | Outpatient (CLI) | payer BC, SELFPAY | END 2021-07-11 08:18 | disposition home or self-care (01) | LOC: WOUND 08:17 | PROVIDERS: PCP Nurse Practitioner Family; Visit Provider Surgery | DX: E11.622 Type 2 diabetes mellitus with other skin ulcer (principal); I96 Gangrene, not elsewhere classified; L97.812 Non-pressure chronic ulcer of other part of right lower leg with fat layer exposed | CPT/HCPCS: 11042; 97605; A6197; A6237 ==

== ENCOUNTER 2021-07-18 12:14 | Outpatient (CLI) | payer BC, SELFPAY | END 2021-07-18 12:15 | disposition home or self-care (01) | LOC: WOUND 12:15 | PROVIDERS: PCP Nurse Practitioner Family; Visit Provider Surgery | DX: E11.622 Type 2 diabetes mellitus with other skin ulcer (principal); L97.812 Non-pressure chronic ulcer of other part of right lower leg with fat layer exposed | CPT/HCPCS: 15271; 97605; A6250; C1849 ==

== ENCOUNTER → 2021-10-23 13:09 | Outpatient (BNVA) | payer BC, SELFPAY | PROVIDERS: PCP Nurse Practitioner Family; Referring Provider Nurse Practitioner Family; Visit Provider Podiatrist Foot & Ankle Surgery | DX: S99.912A Unspecified injury of left ankle, initial encounter (principal); X58.XXXA Exposure to other specified factors, initial encounter; M19.072 Primary osteoarthritis, left ankle and foot | CPT/HCPCS: 73610 ==

== ENCOUNTER → 2022-02-11 11:49 | Outpatient (BNVA) | payer BC, SELFPAY | PROVIDERS: PCP Nurse Practitioner Family; Visit Provider Podiatrist Foot & Ankle Surgery | DX: M19.171 Post-traumatic osteoarthritis, right ankle and foot (principal) | CPT/HCPCS: 73610 ==

== ENCOUNTER 2022-08-31 14:33 | Outpatient (CLI) | payer BC, SELFPAY ==
--- NOTE | 2022-08-31 15:01 | MM_ITS ---
WS: [id number] BILATERAL 3D TOMOSYNTHESIS DIGITAL SCREENING MAMMOGRAPHY WITH CAD CLINICAL INFORMATION: SCREEN HISTORY: Screening mammogram. No current complaints. COMPARISON: 2019 TECHNIQUE: Bilateral CC and MLO views. FINDINGS: Scattered fibroglandular densities bilaterally. No suspicious focal mass, asymmetry, calcifications, or architectural distortion. No evidence of malignancy. A few incidental punctate calcifications. MM/[place] [id number] IMPRESSION: BI-RADS: 2-Benign FOLLOW UP: 1 Year Follow-up Recommend return to annual screening mammography.
== END 2022-08-31 14:34 | disposition home or self-care (01) ==
PROVIDERS: PCP Nurse Practitioner Family; Visit Provider Nurse Practitioner Family
DX: Z12.31 Encounter for screening mammogram for malignant neoplasm of breast (principal)
CPT/HCPCS: 77063; 77067

== ENCOUNTER → 2024-07-11 10:31 | Outpatient (BNVA) | payer BC, MEDICAID, SELFPAY | PROVIDERS: PCP Nurse Practitioner Family; Visit Provider Podiatrist Foot & Ankle Surgery | DX: M25.572 Pain in left ankle and joints of left foot (principal); M19.172 Post-traumatic osteoarthritis, left ankle and foot; D36.10 Benign neoplasm of peripheral nerves and autonomic nervous system, unspecified | CPT/HCPCS: 73610 ==